=== PATIENT | male | born 1950 | race Caucasian/White ===

== ENCOUNTER 2017-03-06 18:16 | Emergency (ER) | payer MEDICARE, MEDICAID ==
[~2017-03-06] VITALS: Ht 185.4 cm; Wt 135.4 kg
[~2017-03-06 18:16] MED LIST: CIPR-231 PO; OXYC-407 PO; VITAMINS
[2017-03-06 18:35] VITALS: BP 132/78; PULSE 101; RESP 18; O2SAT 96
--- NOTE | 2017-03-06 19:14 | DRSVH ---
PROCEDURE: X-RAY CHEST ONE VIEW, PORTABLE ([id number]) INDICATIONS: 66 year-old male with chest pain. TECHNIQUE: One view of the chest was acquired. COMPARISON: None. FINDINGS: Surgical changes and devices: None. Lungs and pleura: No pleural effusions or pneumothorax. Lungs are clear. Mediastinum: Mediastinal contours appear normal. Heart size is normal. Bones and chest wall: No suspicious bony lesions. Overlying soft tissues appear unremarkable. IMPRESSION: No acute cardiopulmonary disease. Dictated by: Weston Toro M.D. on 03/06/2017 at 19:12 Approved by: Weston Toro M.D. on 03/06/2017 at 19:13
[2017-03-06 19:38] LABS: BASOPHILS % (AUTO) 0.5 % (0-3); EOSINOPHILS % (AUTO) 6.6 % (0-5); MONOCYTES % (AUTO) 8.4 % (4-12); Mean Corpuscular Hemoglobin 30.4 pg (27.0-35.0); NEUTROPHILS % (AUTO) 53.2 % (40-74); Platelet Count 199 bil/L (150-400)
--- NOTE | 2017-03-06 20:08 | ED.REPORT ---
HPI-Chest Pain 40 and Over Date of Service Mar 06, 2017 ED Provider: Dr. Ortez 66 y/o male with a possible hx of PE presents to the ED via EMS complaining of sharp pleuritic and positional chest pain, onset yesterday. His pain significantly worsens each time he twists. He denies any other sx at this time. Nursing Notes Stated Complaint: LUNG PAIN Chief Complaint: Chest Pain Nursing Notes Reviewed: Yes Allergies: Coded Allergies: No Known Allergies (Unverified , 03/06/17) Scheduled Ciprofloxacin (Cipro) 500 Mg Tablet 500 MG PO BID Scheduled PRN Oxycodone HCl/Acetaminophen 5-325 (Endocet 5-325) 1 Each Tablet 1-2 TABLET PO Q4H PRN PRN For Pain Miscellaneous Medications ([Vitamins]) General Time Seen by MD: 20:07 Chief Complaint Chest pain Hx Obtained From: Patient Arrived By: Ambulance Sudden in Onset?: Yes Onset Occurred: Yesterday Symptom Duration: Since onset Location: : Chest left Quality: Sharp Recent Healthcare: No recent doctor visit Similar Sx Previous: No Past Medical History Past Medical History Notes: The patient states he is unsure of his pain contract with Dr. Epperson. Past Medical History Left testicular epididymitis Past Surgical History Testicular Surgery (hydrocele repair in past) Family History Noncontributory Smoking History Never Smoker Social History Alcohol Use: "Social" ("Rarely") Other Social History: Local resident Ambulatory Status Independent Review of Systems Constitutional: Denies: Chills, Fever Respiratory: Reports: Pleuritic pain, Denies: Dyspnea on exertion, Hemoptysis Cardiovascular: Reports: Chest pain GI: Denies: Abdominal pain Musculoskeletal: Denies: Back pain Neurologic: Denies: Abnormal movement Psychiatric: Denies: Agitation Complete sys rev & neg: except as marked. Physical Exam Initial Vital Signs Vital Signs (First) Date Time Temp Pulse Resp B/P Pulse Ox O2 Delivery O2 Flow Rate FiO2 03/06/17 18:35 36.6 101 18 132/78 96 Room Air Initial VS: Reviewed Head / Eyes: Atraumatic, Normocephalic Neck: Supple, Non-tender, Full range of motion Extremities: Vascular intact, Neuro intact, No swelling, No tenderness Skin: Warm, Dry, No cyanosis Neurologic: Alert, Oriented, Nonfocal General/Constitutional: Awake, Alert, Cooperative Respiratory / Chest: Atraumatic, Breath sounds NL, Breath sounds = bilat, No respiratory distress, No rales, No rhonchi, No wheezing Cardiovascular: Heart rate NL, Regular rhythm, Heart sounds NL, No gallop, No murmurs, No rubs Abdomen: Atraumatic, Soft, Non-tender, No guarding, No rebound Interpretation & Diagnostics Lab Results Interpretation Result Diagram: 03/06/17192203/06/171922 Test 03/06/17 19:23 03/06/17 23:03 White Blood Count 9.6th/mm3 (3.8-10.1) Red Blood Count 4.74mil/mm3 (4.40-5.80) Hemoglobin 14.4g/dL (13.8-17.2) Hematocrit 42.2% (41.0-50.0) Mean Corpuscular Volume 89.0fL (81-100) Mean Corpuscular Hemoglobin 30.4pg (27.0-35.0) Mean Corpuscular Hemoglobin Concent 34.1% (32.0-37.0) Red Cell Distribution Width 13.2% (12.3-15.4) Platelet Count 199bil/L (150-400) Neutrophils (%) (Auto) 53.2% (40-74) Lymphocytes (%) (Auto) 31.2% (14-46) Monocytes (%) (Auto) 8.4% (4-12) Eosinophils (%) (Auto) 6.6% (0-5) Basophils (%) (Auto) 0.5% (0-3) D-Dimer 1.26mg/L FEU (<0.50) Sodium Level 137mEq/L (134-144) Potassium Level 4.4mEq/L (3.5-5.2) Chloride Level 99mEq/L (97-108) Carbon Dioxide Level 24mmol/L (18-29) Blood Urea Nitrogen 15mg/dL (8-27) Creatinine 0.87mg/dL (0.76-1.27) Estimat Glomerular Filtration Rate 93mL/min (>59) Glucose Level 110mg/dL (60-99) Calcium Level 9.0mg/dL (8.5-10.1) Magnesium Level 2.1mg/dL (1.6-2.6) Total Bilirubin 0.4mg/dL (0.0-1.2) Aspartate Amino Transf (AST/SGOT) 19U/L (0-50) Alanine Aminotransferase (ALT/SGPT) 21U/L (0-44) Alkaline Phosphatase 86U/L (25-160) Total Protein 7.2g/dL (6.4-8.4) Albumin 4.0g/dL (3.4-5.0) Hold Bell Top Tube Received (Received) Troponin T 0.010ug/L (0.0-0.011) ECG Interpretation ECG Interpretation: Hue sinus rhythm. Rate 90. Time: 20:02 Interpreted by: ED physician X-Ray Chest Interpretation Chest Xray Interpretation: IMPRESSION: No acute cardiopulmonary disease. Dictated by: Weston Toro M.D. on 03/06/2017 at 19:12 Approved by: Weston Toro M.D. on 03/06/2017 at 19:13 View: Portable, 1 view Interpretation / Wet Read by: Interpret - Radiologist CT Chest Interpretation Conclusionm: no evidence of PE or aortic dissection. Mild bronchitic thickening bilaterally, can be seen with reactive airways disease, acute or chronic bronchitis or interstitial edema. Signed by Dr. Deyanira Araiza 03/06/17 23:30 Study type: CT pulm angiogram Interpretation / Wet Read by: Interpret - Radiologist Re-Eval/Medical Decision Med Decision/Clinical Course VT ruled out with serial tropes. PE ruled out. Bronchitis identified on chest CT. There is also complaining of muscular skeletal pain. Z-Kamran and a short course of opiates provided for pain. Routine opiate warnings given. Follow up outpatient recommended. Source of Hx: Old records Time of Eval: 23:47 Re-Evaluation/Progress Note: Rechecked pt. Discussed lab results, imaging results, diagnosis and plan to discharge. Pt understands and agrees with the plan. F/U instructions and RTER warning given. All questions addressed. Counseled Regarding: Diagnosis, Lab results, Need for follow-up, When/why to return to ED Discharge & Departure Primary Impression: Pleuritic chest pain Additional Impression: Bronchitis Disposition: Home Discharge Condition All VS Reviewed: Yes Condition: Stable Patient Instructions: Acute Bronchitis (ED) Additional Instructions: Thank you for entrusting us with your care today. Your CT scan is suspicious for bronchitis. It rules out a blood clot. Your serous heart enzymes are normal. Finish the Z-pack as prescribed. Take 1-2 [place] every 6 hours as needed for pain. Do not drive tonight. Do not drive or drink alcohol or consume acetaminophen while taking the [place]. Follow up with your primary care provider for further evaluation. If you develop any new or worsening pain come back to the emergency department. It was very nice meeting you. Referrals: Scott Epperson MD (PCP) Scribe Attestation Portions of this note were transcribed by Derrick Woodruff. I,, personally performed the history, physical exam and medical decision-making;I reviewed and confirmed the accuracy of the information in the transcribed note. Signed by Jun Lopes. 03/07/17 00:05 copies to: Scott Epperson MD, Todd P DO Mar 06, 2017 20:08 Derrick Woodruff Mar 06, 2017 20:13
[2017-03-06 20:28] LABS: TROPONIN T < 0.010 ug/L (0.0-0.011)
[2017-03-06 20:36] LABS: Magnesium 2.1 mg/dL (1.6-2.6)
[2017-03-06] MEDS ORDERED: HYDROmorphone 0.5 mg/0.5 mL iSecure Syringe IVPUSH PRN (21:10)
[2017-03-06 21:29] VITALS: BP 148/75; PULSE 100; RESP 16; O2SAT 98
[2017-03-06] MEDS ORDERED: _HYDROcodone/APAP 5-325 mg Tablet PO PRN (23:45)
[2017-03-07] MEDS ORDERED: Sodium Chloride LOK Flush 10 mL Syringe IVFLUSH SCH (00:30)
[2017-03-07 00:39] VITALS: BP 151/88; PULSE 100; RESP 16; O2SAT 94
--- NOTE | 2017-03-07 07:18 | DRSVH ---
PROCEDURE: CT ANGIO CHEST PULMONARY EMBOLISM ([id number]) INDICATIONS: pleuritic pain TECHNIQUE: After the administration of intravenous contrast, 2 mm thick sections acquired from the pulmonary api reese to the posterior costophrenic angles. 3-dimensional maximum intensity projection (MIP) coronal a nd sagittal reformats were then acquired through the thorax. For radiation dose reduction, the follo wing was used: automated exposure control, adjustment of mA and/or kV according to patient size. COMPARISON: [facility], CR, XR CHEST 1VW (PORTABLE), 03/06/2017, 19:04. FINDINGS: Image quality: Good Pulmonary arteries: Pulmonary arteries are normal in size, and demonstrate no intraluminal filling d efects to suggest central pulmonary embolism. Lungs and pleura: Lungs are clear other than some subsegmental atelectasis at the lung bases. No pl eural effusions or pneumothorax. Central and peripheral airways are patent. Mediastinum: Heart size is normal, without pericardial effusion. No mediastinal or hilar adenopathy . Thoracic aorta is normal in caliber and enhancement. Esophagus is normal in caliber, without hiat al hernia. Bones and chest wall: There is bilateral mild gynecomastia present. No suspicious bony lesions. Ribs and thoracic spine appear intact throughout. Thyroid gland is within normal limits. No axillary or supraclavicular adenopathy. Abdomen: Visualized upper abdominal solid organs appear normal in the early arterial phase of enhanc ement. IMPRESSION: 1. No evidence for pulmonary embolus. 2. Aorta and great vessels show no evidence for aneurysm or dissection. 3. No airspace disease is seen in the lungs. There is suggestion of mild central peribronchial cuffin g. This are evident to suggest bronchitis clinically? Dictated by: Erick Mast M.D. on 03/07/2017 at 7:11 this report corresponds to the findings of e preliminary NSR report. Approved by: Erick Mast M.D. on 03/07/2017 at 7:16
== END 2017-03-07 00:18 | disposition home or self-care (01) ==
LOC: SED 18:16 → EDBD 18:16 → EDUNIT# 18:16 → SED 03-07 00:18
DX: R07.81 Pleurodynia (principal); J20.9 Acute bronchitis, unspecified; M79.1 Myalgia
CPT/HCPCS: 36415; 71010; 71275; 80053; 83735; 84484; 85025; 85378; 93005; 96374; 99285; J1170; Q9967